=== PATIENT | female | born 1945 | race Caucasian/White ===

== ENCOUNTER → 2017-02-06 | Outpatient (CLI) | payer MEDICARE, BC ==
[~2017-02-06] MED LIST: ALENDRONATE SOD70 MG PO; CELEBREX 200MG200 MG PO; COUMADIN 3MG3 MG/TAB PO; IMODIUM 2MG CAPS2 MG PO; LASIX 20MG TABL20 MG PO; MILK OF MAGNESI30 ML PO; MIRALAX PA17 GM/Dose PO; MULTIVITAMIN PO; NORCO 325 MG-51 TAB PO; OMNICEF 300MG300 MG PO; RESTASIS0.05% OP; SENOKOT8.6 MG PO; SIMVASTATIN20 MG PO; THERMOTABS 2871 TA1 PO; TYLENOL 325MG325 MG PO; ULTRAM 50MG TAB50 MG PO; ZOFRAN 4MG T4 MG/TAB PO
== END ==
LOC: MC.RAD 08:21
DX: Z12.31 Encounter for screening mammogram for malignant neoplasm of breast (principal)

== ENCOUNTER → 2018-02-20 | Outpatient (CLI) | payer MEDICARE, BC | LOC: MC.RAD 10:50 | DX: Z12.31 Encounter for screening mammogram for malignant neoplasm of breast (principal) ==

== ENCOUNTER → 2018-06-19 | Outpatient (CLI) | payer MEDICARE, BC | LOC: COL.RAD 09:48 | DX: K44.9 Diaphragmatic hernia without obstruction or gangrene (principal); M43.17 Spondylolisthesis, lumbosacral region; M47.816 Spondylosis without myelopathy or radiculopathy, lumbar region; R59.0 Localized enlarged lymph nodes; Z90.49 Acquired absence of other specified parts of digestive tract | CPT/HCPCS: Q9967 ==

== ENCOUNTER → 2018-07-10 | Outpatient (CLI) | payer MEDICARE, BC | LOC: COL.RAD 11:00 | DX: E04.1 Nontoxic single thyroid nodule (principal); R59.0 Localized enlarged lymph nodes; Z90.49 Acquired absence of other specified parts of digestive tract | CPT/HCPCS: Q9967 ==

== ENCOUNTER 2018-09-05 07:14 | Outpatient (CLI) | payer MEDICARE, BC ==
[~2018-09-05] VITALS: Ht 154.9 cm; Wt 74.0 kg
[~2018-09-05 07:14] MED LIST changes: -SIMVASTATIN20 MG PO; +ZOCOR 20MG20 MG PO
[2018-09-05 07:35] VITALS: BP 152/71; PULSE 57; TEMP 97.5
[2018-09-05] MEDS ORDERED: ZANTAC 150MG T150 MG PO (08:20)
[2018-09-05] MEDS ORDERED: MULTI VITAMINS1 TAB PO (08:22)
[2018-09-05 09:12] VITALS: BP 151/68; PULSE 48
== END 2018-09-05 10:17 | disposition home or self-care (01) ==
LOC: EUO 07:14
PROVIDERS: Internal Medicine
DX: E87.1 Hypo-osmolality and hyponatremia (principal); E27.40 Unspecified adrenocortical insufficiency
CPT/HCPCS: J0834

== ENCOUNTER → 2019-03-19 | Outpatient (CLI) | payer MEDICARE, BC ==
[~2019-03-19] MED LIST changes: +MULTI VITAMINS1 TAB PO; +ZANTAC 150MG T150 MG PO
== END ==
LOC: MC.RAD 10:33
DX: Z12.31 Encounter for screening mammogram for malignant neoplasm of breast (principal)

== ENCOUNTER → 2019-05-20 | Outpatient (CLI) | payer MEDICARE, BC | LOC: COL.RAD 05-12 10:30 | DX: E04.1 Nontoxic single thyroid nodule (principal); R59.0 Localized enlarged lymph nodes ==

== ENCOUNTER → 2019-05-29 | Outpatient (CLI) | payer MEDICARE, BC ==
[~2019-05-29] VITALS: Ht 154.9 cm; Wt 78.4 kg
[~2019-05-29] MED LIST changes: +CORTEF 10MG TAB10 MG PO; +CORTEF5 MG PO
[2019-05-29 08:20] VITALS: BP 169/86; PULSE 74
[2019-05-29 09:30] VITALS: BP 181/100; PULSE 59
--- NOTE | 2019-05-29 09:45 | NUR ---
PT FINISHED WITH HER SNACK. BP IS NOW 166/98. PT TAKEN TO LOBBY AND LEFT WITH HER
== END ==
LOC: COL.RAD 08:05
DX: E04.1 Nontoxic single thyroid nodule (principal)

== ENCOUNTER → 2019-12-17 | Outpatient (CLI) | payer MEDICARE, BC | LOC: COL.PUL 09:31 | DX: R06.02 Shortness of breath (principal) | CPT/HCPCS: J7674 ==

== ENCOUNTER → 2021-08-11 | Outpatient (CLI) | payer MEDICARE, BC ==
[~2021-08-11] MED LIST changes: +BREO IH; +CENTRUM SILVER1 CTB PO; +FLONASEALLERGY NS; +REFRESH TEARS 330 ML OP; +TIROSINT75 MC1 PO; +TYLENOL 500MG500 MG PO; +ZYRTEC 10MG10 MG PO
[2021-08-11 11:18] LABS: HEMOGLOBIN 13.1 g/dl (12.5-16.0); MEAN CELL VOLUME 97 fl (80.0-100.0); MEAN CORPUSCULAR HEMOGLOBIN 31 pg (27.0-31.0); MEAN CORPUSCULAR HGB CONC 32 g/dl (33.0-37.0); MEAN PLATELET VOLUME 9.5 fl (7.4-10.4); PLATELET COUNT 255 K/mm3 (130-400); RED BLOOD COUNT 4.23 M/mm3 (4.10-5.30)
[2021-08-11 11:34] LABS: ALBUMIN 3.7 gm/dL (3.4-4.8); BILIRUBIN,TOTAL 0.4 mg/dL (0.2-1.2); CALCIUM 9.1 mg/dL (8.4-10.2); CREATININE, serum 0.74 mg/dL (0.57-1.11); POTASSIUM 3.7 mmol/L (3.5-4.5); TOTAL PROTEIN 7.1 gm/dL (6.2-8.1)
== END ==
LOC: COL.RAD 10:36 → COL.LAB 10:36 → COL.RAD 11:30
PROVIDERS: Surgery
DX: Z01.818 Encounter for other preprocedural examination (principal); K63.89 Other specified diseases of intestine; R59.0 Localized enlarged lymph nodes; Z90.49 Acquired absence of other specified parts of digestive tract; Z90.89 Acquired absence of other organs
CPT/HCPCS: Q9967

== ENCOUNTER 2021-08-16 13:41 | Inpatient (IN) | payer MEDICARE, BC ==
[~2021-08-16] VITALS: Ht 152.4 cm; Wt 72.6 kg
[~2021-08-16 13:41] MED LIST changes: -BREO IH; -CENTRUM SILVER1 CTB PO; -FLONASEALLERGY NS; -REFRESH TEARS 330 ML OP; -TIROSINT75 MC1 PO; -TYLENOL 500MG500 MG PO; -ZYRTEC 10MG10 MG PO
[2021-08-31] VITALS (12 sets, daily range): BP systolic 87–163; BP diastolic 35–84; PULSE 52–81; TEMP 97.5–98.3
[2021-08-31] MEDS ORDERED: TYLENOL 325MG325 MG PO (06:39)
[2021-08-31] MEDS ORDERED: ZYRTEC 10MG10 MG PO (06:40)
[2021-08-31] MEDS ORDERED: FLONASEALLERGY NS (06:41)
[2021-08-31] MEDS ORDERED: BREO IH (06:42)
[2021-08-31] MEDS ORDERED: CORTEF 10MG TAB10 MG PO (06:42)
[2021-08-31] MEDS ORDERED: CORTEF5 MG PO (06:43)
[2021-08-31] MEDS ORDERED: CENTRUM SILVER1 CTB PO (06:44)
[2021-08-31] MEDS ORDERED: TIROSINT75 MC1 PO (06:44)
[2021-08-31] MEDS ORDERED: REFRESH TEARS 330 ML OP (06:45)
[2021-08-31] MEDS ORDERED: ZOCOR 20MG20 MG PO (06:46)
--- NOTE | 2021-08-31 11:45 | NUR ---
Pt recently arrived to the floor from PACU. BP is low, but is steady from what it was in PACU. Pt seems somewhat confused/scared. She keeps asking me if I know what adrenal insufficiency is and asking why I'm not doing anything about it. I tried asking her what is going on that she feels that I need to fix. She just keeps saying the adrenal insufficiency. Informed her that she will be taking the steriods that she is on at home. Incisions are all CDI with bandaids and metapor tape. Colby with clear yellow output. Call light within reach
--- NOTE | 2021-08-31 15:00 | NUR ---
Pt doing better now as far as talking about her adrenal insufficiency and what are we are going to do about it. Pt does have some complaints of pain in her right side. Tylenol was given. Vital signs continue to trend up. Pts is at bedside. Educated on diet, pt only wants ice water. Pt does have chewing gum.
--- NOTE | 2021-08-31 16:54 | NUR ---
Pt continues to do well. She continues to have complaints of pain, but did state that the tylenol helped. Offered to give her the Ultram, but she refused stating she needed solid food in order to take it or she would throw up. Pt reported that her pain wasn't tolerable. Pt continues to deny anything but water. Call light within reach
--- NOTE | 2021-08-31 19:08 | NUR ---
Pt did do well with a clear liquid tray. She initially stated that she did not want anything, but she did end up drinking most of the broth, cranberry juice and an belarusian ice. Her is currently present in the room. Denies any other needs, report given
--- NOTE | 2021-08-31 21:30 | NUR ---
PT IN BED, VERY SLEEPY. REPORTS NOT SLEEPING WELL NIGHT BEFORE SURGERY. TAKES HS MED WITHOUT PROBLEM. IVF TO LEFT WRIST INFUSING WITHOUT REDNESS OR SWELLING. TAKING CLEAR LIQUIDS WITHOUT N/V. GARCIA TO BSD WITH YELLOW URINE. ROBOTIC ABD SITES X4 D/I, LOWER TRANSVERSE DRSG D/I. DENIES PAIN.
[2021-09-01 03:26] VITALS: BP 112/47; PULSE 58; TEMP 98.2
--- NOTE | 2021-09-01 06:00 | NUR ---
Pt takes AM meds without problem. Repositioned in bed. Reports mild discomfort to rt abd. Denies need for stronger pain meds.
[2021-09-01 06:31] LABS: BASO % 0.2 % (0.0-2.0); EOS # 0.1 K/mm3 (0.0-0.7); EOS % 0.7 % (0-4.0); GRAN # 9.9 K/mm3 (1.4-6.5); GRAN % 79.3 % (42.2-75.2); HEMOGLOBIN 11.2 g/dl (12.5-16.0); LYMPH # 1.3 K/mm3 (1.2-3.4); LYMPH % 10.1 % (20.0-51.0); MEAN CELL VOLUME 95 fl (80.0-100.0); MEAN CORPUSCULAR HEMOGLOBIN 31 pg (27.0-31.0); MEAN CORPUSCULAR HGB CONC 32 g/dl (33.0-37.0); MEAN PLATELET VOLUME 10.3 fl (7.4-10.4); MONO # 1.1 K/mm3 (0.1-0.6); MONO % 9.1 % (1.7-9.3); PLATELET COUNT 259 K/mm3 (130-400); RED BLOOD COUNT 3.66 M/mm3 (4.10-5.30); REDCELL DISTRIBUTION WIDTH-CV 13.2 % (11.5-14.5)
[2021-09-01 06:44] LABS: CALCIUM 8.2 mg/dL (8.4-10.2); CREATININE, serum 0.69 mg/dL (0.57-1.11); POTASSIUM 3.8 mmol/L (3.5-4.5)
[2021-09-01 06:46] LABS: HEMATOCRIT 34.7 % (37.0-47.0)
--- NOTE | 2021-09-01 07:00 | NUR ---
Pt resting in bed. She does state that her pain is tolerable at this time. Discussed her getting up in to the chair this morning. Will order clear liquid tray.
[2021-09-01 07:50] VITALS: BP 97/58; PULSE 58; TEMP 97.6
--- NOTE | 2021-09-01 09:18 | NUR ---
Initial visit; Patient and Artificial Limb Maker were acquainted through a Bible study and enjoyed catching up. Artificial Limb Maker offered prayer and will keep Lucinda in her prayers.
--- NOTE | 2021-09-01 11:03 | NUR ---
Pt continues to do well. Pain well controlled by Tylenol. Colby removed by PCT with me supervising. Pt aware to use her call light when she needs to use the restroom. Did assist pt ambulating and she did well with stand by assist. She is tolerating clear liquids, not passing gas at this time
--- NOTE | 2021-09-01 11:07 | NUR ---
child daycare worker met with patient to discuss discharge plan. Patient's Ervin ([phone] C) present at bedside. Patient reports that she is fully independent within the home and does not utilize any DME to assist with mobility. She does not use oxygen or a CPAP machine. PCP is Dr. Lala and she utilizes [facility] for medications with no cost difficulty. Patient reports that they [facility] have a DPOA-[facility] established and that the hospital should have a copy on file. Verified that we do indeed have a copy. Patient is planning on returning back home with her and has no concerns. Discharge plan: Home with spouse
[2021-09-01 12:31] VITALS: BP 119/55; PULSE 59; TEMP 97.9
[2021-09-01 15:37] VITALS: BP 123/55; PULSE 57; TEMP 98.2
--- NOTE | 2021-09-01 17:38 | NUR ---
Nurse emcouraged the patient to try and void. The nurse assisted the patient went a standby assist to the bathroom and states that she doesnt know if she urinated and that she had a loose BM. The patient had her brown removed earlier in the shift, this nurse will update the shiftman nurse. Patient is A&Ox3. VSS. IV CDI. Reports that she feels nauseous. Nurse instructed the patient to intake PO slowly. Denies pain. at the bedside. No further needs expressed. Call light within reach
[2021-09-01 19:47] VITALS: BP 129/53; PULSE 57; TEMP 98.1
--- NOTE | 2021-09-01 21:30 | NUR ---
Pt. sitting up in bed. Pt. is A&OX3, assessment complet. INT to lt. wrist patent. Pt. denies pain at this time. Pt. reports that she is having loose stools. Pt. denies further needs, call light within reach.
[2021-09-01 23:10] VITALS: BP 126/72; PULSE 52; TEMP 98.3
[2021-09-02 03:10] VITALS: BP 120/59; BP 1200/59; PULSE 76; TEMP 97.9
[2021-09-02 08:00] VITALS: BP 94/58; PULSE 82; TEMP 98
--- NOTE | 2021-09-02 08:00 | NUR ---
PATIENT IS A&O. VSS. PATIENT DENIES C/O N/V OR PAIN ISSUES. FOREIGN CORRESPONDENT REPORTS PATIENT REFUSED AM TYLENOL BECAUSE SHE WAS NOT HAVING ANY PAIN. ABD LAP SITES X4 ARE CD&I WITH BANDAIDS. ABD TRANSVERSE INCISION IS CD&I. NOTED HYPOACTIVE BOWL SOUNDS. REVIEWED STUDENT NURSE ASSESSMENT, SEE CHARTING. LEFT WRIST IV TO INT. PATIENT TOLERATING BLAND DIET. INDEPENDENT IN ROOM. NO OTHER NEEDS AT THIS TIME. CALL LIGHT IN REACH.
[2021-09-02] MEDS ORDERED: TYLENOL 500MG500 MG PO (08:25)
--- NOTE | 2021-09-02 09:35 | NUR ---
pt up in chair, finished eating breakfast, pt AOx4, complaint of pain in abd, numeric scale 6/10. gave PO 1000 mg tylenol. Will continue to monitor and assess. Pt refused walk at this time.
[2021-09-02 12:00] VITALS: BP 126/65; PULSE 77; TEMP 97.7
[2021-09-02 15:27] VITALS: BP 122/57; PULSE 71; TEMP 97.6
[2021-09-02 19:34] VITALS: BP 124/57; PULSE 75; TEMP 97.7
--- NOTE | 2021-09-02 21:45 | NUR ---
Pt. sitting up in bed. Pt. is A&OX3, assessment complete. INT to lt. wrist patent. Abdominal incision CDI. Pt. reports pain at a 3 on pain scale, gave giving Tylenol. Pt. denies further needs, call light within reach.
[2021-09-02 23:32] VITALS: BP 127/51; PULSE 68; TEMP 98.4
[2021-09-03 03:06] VITALS: BP 119/51; PULSE 60; TEMP 98.4
[2021-09-03 07:53] VITALS: BP 138/49; PULSE 64; TEMP 98.7
--- NOTE | 2021-09-03 08:00 | NUR ---
Patient sitting up in the recliner. A&Ox4. VSS. IV CDI. Patient reporting nausea with and without food. Denies pain. Independent in the room. Reporting still having loose stools. Nurse encouraging PO intake and to do it slowly. No further needs expressed. Call light within reach
[2021-09-03 13:24] LABS: BASO % 0.4 % (0.0-2.0); EOS # 0.4 K/mm3 (0.0-0.7); EOS % 4.5 % (0-4.0); GRAN # 7.9 K/mm3 (1.4-6.5); GRAN % 80.2 % (42.2-75.2); HEMATOCRIT 38.2 % (37.0-47.0); HEMOGLOBIN 12.3 g/dl (12.5-16.0); LYMPH # 0.7 K/mm3 (1.2-3.4); LYMPH % 7.1 % (20.0-51.0); MEAN CELL VOLUME 96 fl (80.0-100.0); MEAN CORPUSCULAR HEMOGLOBIN 31 pg (27.0-31.0); MEAN CORPUSCULAR HGB CONC 32 g/dl (33.0-37.0); MEAN PLATELET VOLUME 10.5 fl (7.4-10.4); MONO # 0.7 K/mm3 (0.1-0.6); MONO % 6.9 % (1.7-9.3); PLATELET COUNT 268 K/mm3 (130-400); RED BLOOD COUNT 3.98 M/mm3 (4.10-5.30); REDCELL DISTRIBUTION WIDTH-CV 13.2 % (11.5-14.5)
[2021-09-03 13:49] LABS: ALBUMIN 3.1 gm/dL (3.4-4.8); BILIRUBIN,TOTAL 0.4 mg/dL (0.2-1.2); CALCIUM 9.3 mg/dL (8.4-10.2); CREATININE, serum 0.69 mg/dL (0.57-1.11); TOTAL PROTEIN 6.5 gm/dL (6.2-8.1)
[2021-09-03 13:52] LABS: POTASSIUM 2.9 mmol/L (3.5-4.5)
[2021-09-03 16:00] VITALS: BP 111/63; PULSE 75; TEMP 98.3
--- NOTE | 2021-09-03 18:02 | NUR ---
Patient has been sitting in the recliner most of the day, has been at the bedside. A&Ox4. VSS. IV CDI. Reporting nausea with and without food, tolerating PO meds. No nausea medication given. Patient independent in the room. No further needs expressed. Call light within reach
--- NOTE | 2021-09-03 20:00 | NUR ---
Pt. sitting up in chair at this time. Pt. is A&OX3, assessment complete. INT to lt. wrist patent. Abd. incisions CDI. Pt. denies pain or other needs, call light within reach.
[2021-09-03 20:35] VITALS: BP 145/61; PULSE 66; TEMP 98.3
[2021-09-04 00:02] VITALS: BP 142/58; PULSE 63; TEMP 98
[2021-09-04 03:50] VITALS: BP 130/53; PULSE 58; TEMP 98.3
[2021-09-04 07:42] VITALS: BP 137/56; PULSE 63; TEMP 98.9
--- NOTE | 2021-09-04 08:00 | NUR ---
Patient laying in bed A&Ox4. VSS. IV CDI. Patient reporting blood in toilet, bright red. States that she doesnt remember how much, but that she noticed. Nurse informed the patient to call nursing staff when the patient has another BM. Patient verbalized an understanding. Denies pain and discomfort. Tolerating PO intake. No further needs expressed. Call light within reach
[2021-09-04 08:25] LABS: CALCIUM 8.1 mg/dL (8.4-10.2); CREATININE, serum 0.57 mg/dL (0.57-1.11); POTASSIUM 4.2 mmol/L (3.5-4.5)
--- NOTE | 2021-09-04 12:43 | NUR ---
Discharge paperwork reviewed with the patient and . Patient verbalized an understanding to follow doctors orders. IV removed, tip intact. Gauze and coban applied. Patient eatting lunch. No further needs expressed. Call light within reach
--- NOTE | 2021-09-04 13:23 | NUR ---
Patient escorted from building via wheelchair by [facility] Staff. Patient denies any pain, discomfort, or further needs a this time. transporting home.
== END 2021-09-04 13:26 | disposition home or self-care (01) | DRG 330 ==
LOC: INPTSU 08-31 05:34 → SURG 08-31 05:34
PROVIDERS: Surgery; ADMIT Surgery
PROC: 8E0W4CZ Robotic Assisted Procedure of Trunk Region, Percutaneous Endoscopic Approach (ICD-10-PCS; 2021-08-31)
PROC: 0DTF4ZZ Resection of Right Large Intestine, Percutaneous Endoscopic Approach (ICD-10-PCS; principal; 2021-08-31 07:30)
DX: D12.2 Benign neoplasm of ascending colon (principal); E27.49 Other adrenocortical insufficiency; K21.9 Gastro-esophageal reflux disease without esophagitis; Z90.49 Acquired absence of other specified parts of digestive tract; E03.9 Hypothyroidism, unspecified; Z96.653 Presence of artificial knee joint, bilateral; M19.90 Unspecified osteoarthritis, unspecified site; D86.9 Sarcoidosis, unspecified
CPT/HCPCS: A4314; A9284; C9113; J0360; J0690; J1200; J1650; J1720; J2250; J2405; J2704; J3010; J7120

== ENCOUNTER 2022-06-12 10:39 | Emergency (ER) | payer MEDICARE, BC ==
[~2022-06-12] VITALS: Ht 154.9 cm; Wt 75.9 kg
[~2022-06-12 10:39] MED LIST changes: +BREO IH; +CENTRUM SILVER1 CTB PO; +FLONASEALLERGY NS; +REFRESH TEARS 330 ML OP; +TIROSINT75 MC1 PO; +TYLENOL 500MG500 MG PO; +ZYRTEC 10MG10 MG PO
[2022-06-12 10:46] VITALS: TEMP 97.7
[2022-06-12 11:45] VITALS: BP 140/70; PULSE 53
== END 2022-06-12 11:45 | disposition home or self-care (01) ==
LOC: COL.ER 10:39
DX: S09.90XA Unspecified injury of head, initial encounter (principal); S00.83XA Contusion of other part of head, initial encounter; Z79.01 Long term (current) use of anticoagulants; W06.XXXA Fall from bed, initial encounter
CPT/HCPCS: J2765

== ENCOUNTER 2023-10-08 09:54 | Outpatient (CLI) | payer MEDICARE, BC ==
[~2023-10-08] VITALS: Ht 154.9 cm; Wt 78.6 kg
[2023-10-08 10:05] VITALS: BP 147/81; PULSE 75; TEMP 97.5
== END 2023-10-08 10:16 | disposition home or self-care (01) ==
LOC: EUO 09:54
DX: M81.0 Age-related osteoporosis without current pathological fracture (principal)
CPT/HCPCS: J0897